=== PATIENT | female | born 1960 | race Caucasian/White ===

== ENCOUNTER 2018-12-01 03:09 | Emergency (ER) | payer MEDICARE ==
[~2018-12-01] VITALS: Ht 170.2 cm; Wt 72.1 kg
--- OUTSIDE RECORDS SUMMARY | 2018-12-01 03:11 | XMS REPORT | Clinical Summary ---
Author Author [facility] Organization [facility] Address Unknown Phone Unavailable Care Team Providers Care Cardiology Tech Name Role Phone Asked, No Pcp PCP Unavailable Allergies Not on File Medications End Date Status Medication Sig Dispensed Refills Start Date 10/14/2018 traMADol (ULTRAM) 50 mg Take 1 tablet 20 tablet 0 tablet (50 mg total) 8 by mouth every 6 (six) hours as needed for moderate pain for up to 7 days. Active Problems Not on file Encounters Care Team Description Date Type Specialty Heydi Justice MD Closed fracture of left shoulder, initial encounter (Primary Dx) 10/07/2018 Emergency Emergency Medicine after 11/30/2017 Social History Date Tobacco Use Types Packs/Day Years Used Never Assessed Sex Assigned at Date Recorded Not on file Industry Job Start Date Occupation Not on file Not on file Not on file Travel End Travel History Travel Start No recent travel history available. Last Filed Vital Signs Time Taken Vital Sign Reading 10/07/2018 6:44 PM [employer] SALES REPRESENT[employer] Blood Pressure 126/61 10/07/2018 6:44 PM [employer] SALES REPRESENT[employer]IVE Pulse 80 10/07/2018 6:44 PM [employer]AL SALES REPRESENTATIVE Temperature 37.1 C (98.7 F) 10/07/2018 6:44 PM [employer] SALES REPRESENTATIVE Respiratory Rate 16 10/07/2018 6:44 PM [employer]ENTAL SALES REPRESENTATIVE Oxygen Saturation 98% - Inhaled Oxygen - Concentration - Weight - 10/07/2018 6:44 PM [employer] SALES REPRESENTATIVE Height 175.3 cm (5' 9") - Body Mass Index - Plan of Treatment Health Maintenance Due Date Last Done Comments CERVICAL CANCER SCREENING 1979 BREAST CANCER SCREENING 2008 COLON CANCER SCREENING 2008 SHINGLES VACCINES (1 of 2008 2) INFLUENZA VACCINE 05/18/2018 Procedures Comments Procedure Name Priority Date/Time Associated Diagnosis XR ELBOW 3+ VW LEFT STAT 10/07/2018 7:30 PM [employer]ENTAL SALES REPRESENTATIVE XR SHOULDER 2+ VW LEFT STAT 10/07/2018 7:29 PM [employer]ENTAL SALES REPRESENTATIVE after 11/30/2017 Results * XR Elbow 3+ Vw Left (10/07/2018 7:30 PM DENTAL SALES REPRESENTATIVE) Narrative Performed At EXAM:XR ELBOW 3VW LEFT [facility] CLINICAL HISTORY:Fractureelbow COMPARISON:None. IMPRESSION: 1.No evidence of acute displaced left elbow fracture, dislocation, or joint effusion. Moderate soft tissue tissue edema is noted. 2.See dedicated shoulder radiograph performed concurrently [facility]-[id number] Procedure Note Interface, Radiology Results Incoming - 10/07/2018 7:35 PM DENTAL SALES REPRESENTATIVE EXAM: XR ELBOW 3 VW LEFT CLINICAL HISTORY: Fracture elbow COMPARISON: None. IMPRESSION: 1. No evidence of acute displaced left elbow fracture, dislocation, or joint effusion. Moderate soft tissue tissue edema is noted. 2. See dedicated shoulder radiograph performed concurrently [facility]-[id number] Performing Organization Address [facility] Phone Number [facility] [address] [place] [address] * XR Shoulder 2+ Vw Left (10/07/2018 7:29 PM DENTAL SALES REPRESENTATIVE) Narrative Performed At EXAM:XR SHOULDER 2VW LEFT [facility] CLINICAL HISTORY:Shoulder replacedsymptomaticinitial exam COMPARISON:None. IMPRESSION: 1.Evidence for a mildly comminuted fracture through the proximal humeral neck and greater tuberosity. The humeral head is not dislocated from the glenoid. [id number] Procedure Note Interface, Radiology Results Incoming - 10/07/2018 7:34 PM DENTAL SALES REPRESENTATIVE EXAM: XR SHOULDER 2 VW LEFT CLINICAL HISTORY: Shoulder replaced symptomatic initial exam COMPARISON: None. IMPRESSION: 1. Evidence for a mildly comminuted fracture through the proximal humeral neck and greater tuberosity. The humeral head is not dislocated from the glenoid. [facility]-[id number] Performing Organization Address City/[facility]/Zipcode Phone Number [facility] [address] [place] [address] after 11/30/2017 Advance Directives Patient has advance care planning documents on file. For more information, melba rowell contact: Casey Alicea [address] [place] [address]
--- OUTSIDE RECORDS SUMMARY | 2018-12-01 03:11 | XMS REPORT ---
[facility] Address Unknown Phone Unavailable Care Team Providers Care Blow Mold Technician Name Role Phone Unavailable Unavailable Problems This patient has no known problems. Allergies, Adverse Reactions, Alerts This patient has no known allergies or adverse reactions. Medications This patient has no known medications. Encounters Start Date/Time End Date/Time Encounter Type Admission Type Attending [facility] Facility Care Department Encounter ID [id number] Inpatient [facility] [id number] 2017-05-31 14:17:18 Inpatient [facility] [id number] 2017-05-31 13:11:41 Inpatient [facility] [id number] 2017-06-28 00:00:00 2017-06-28 00:00:00 Outpatient [facility] [id number] 2017-05-31 12:19:04 2017-05-31 12:19:04 Emergency [facility] [id number] 2017-05-31 09:28:14 2017-05-31 09:28:14 Inpatient [facility] [id number]
[2018-12-01 03:47] LABS: CLARITY,URINE CLEAR (CLEAR); COLOR,URINE YELLOW (YELLOW); LEUKOCYTE ESTERASE ,URINE 1+ (NEGATIVE)
[2018-12-01 03:48] LABS: BILIRUBIN,URINE NEGATIVE (NEGATIVE); KETONES,URINE NEGATIVE (NEGATIVE); NITRITE,URINE NEGATIVE (NEGATIVE); PROTEIN,URINE DIPSTICK NEGATIVE (NEGATIVE); URINE UROBILINOGEN 0.2 mg/dL (0.2 - 1)
[2018-12-01 03:56] LABS: BACTERIA,URINE MODERATE /HPF; EPITHELIAL CELLS,URINE FEW /LPF; RENAL EPITHELIAL CELLS,URINE FEW; TRANSITIONAL EPI CELLS,URINE FEW; WBC,URINE (MAN) 21-50 /HPF (0-5)
[2018-12-01] MEDS ORDERED: PHENAZOPYRIDINE HCL 100 MG TAB PO ONE (04:15)
[2018-12-01] MEDS ORDERED: NITROFURANTOIN MACROCRYSTALS 100 MG CAP PO ONE (04:15)
== END 2018-12-01 04:24 | disposition home or self-care (01) ==
LOC: ER 03:09
DX: R30.0 Dysuria (principal); N30.91 Cystitis, unspecified with hematuria
CPT/HCPCS: 81001; 99283